=== PATIENT | female | born 1965 | race Two or more races ===

== ENCOUNTER 2023-08-31 17:08 | Emergency (ER) | payer SELFPAY ==
[~2023-08-31] VITALS: Ht 147.3 cm; Wt 86.3 kg
[2023-08-31 17:46] VITALS: BP 121/93; RESP 18; O2SAT 100
[2023-08-31 17:50] VITALS: PULSE 67
[2023-08-31] MEDS: CYCLOBENZAPRINE HCL 10 MG TAB PO ONE (18:59)
[2023-08-31] MEDS: DexAMETHasone SOD PHOS 10MG/1ML VIAL INJ IM ONE (18:59)
[2023-08-31 19:16] LABS: Urine Bacteria NONE SEEN /hpf (None Seen); Urine Blood Negative /uL (Negative); Urine Clarity Clear (Clear); Urine Color Yellow (Yellow); Urine Protein, UAD Negative (Negative); Urine Specific Gravity 1.026 (1.001-1.035); Urine Urobilinogen Normal (Negative); Urine WBC <1 /hpf (0 - 5); Urine pH 6.5 (5.0-8.0)
[2023-08-31] MEDS ORDERED: ZOFR4T PO (20:02)
[2023-08-31] MEDS ORDERED: MECL1TAB42 PO (20:02)
== END 2023-08-31 21:23 | disposition left against medical advice (07) ==
LOC: ER 17:08
DX: H81.10 Benign paroxysmal vertigo, unspecified ear (principal)
CPT/HCPCS: 81001; 82962; 93005; 96372; 99284; J1100

== ENCOUNTER → 2023-12-10 | Outpatient (CLI) | payer BC ==
[~2023-12-10] MED LIST: MECL1TAB42 PO; ZOFR4T PO
[2023-12-10 06:48] LABS: Urine Bacteria None Seen /hpf (None Seen)
[2023-12-10 07:29] LABS: Urine Blood TRACE /uL (Negative); Urine Clarity Clear (Clear); Urine Color Yellow (Yellow); Urine Hyaline Cast MOD /lpf (0 - 2); Urine Mucus FEW (None Seen); Urine Protein, UAD TRACE (Negative); Urine Specific Gravity 1.025 (1.001-1.035); Urine Urobilinogen 2 mg/dL (Negative); Urine WBC 5 /hpf (0 - 5); Urine pH 5.5 (5.0-9.0)
[2023-12-10 07:46] LABS: % Iron Saturation 4.2 % (15-50)
[2023-12-10 07:48] LABS: Alanine Aminotransferase 13 U/L (7-40); Alkaline Phosphatase 124 U/L (46-116); Anion Gap 6 (5-15); BUN/Creatinine Ratio 23.5 (10.0-20.0); Blood Urea Nitrogen 16 mg/dL (9-23); Calcium 9.4 mg/dL (8.5-10.1); Carbon Dioxide 26 mmol/L (20-30); Chloride 109 mmol/L (98-107); Glucose 105 mg/dL (74-106); LDL Cholesterol 130 mg/dL (< 100); Potassium 4.3 mmol/L (3.5-5.1); Sodium 141 mmol/L (136-145); Triglycerides 128 mg/dL (< 150)
[2023-12-10 07:49] LABS: Albumin 3.7 g/dL (3.2-4.8); Aspartate Aminotransferase 14 U/L (13-40)
[2023-12-10 07:50] LABS: Basophils # (auto) 0.1 10 ^3/uL (0-0.2); Basophils % (auto) 0.8 % (0.0-2.0); Bilirubin, Total 0.2 mg/dL (0.2-1.0); Cholesterol 200 mg/dL (< 200); Eosinophils # (auto) 0.1 10 ^3/uL (0-0.8); HDL Cholesterol 55 mg/dL (40-59); Hematocrit 30.1 % (36.0-46.0); Hemoglobin 9.2 g/dL (12.2-16.2); Lymphocytes # (auto) 2.1 10 ^3/uL (0.4-5.4); Lymphocytes % (auto) 28.9 % (10.0-50.0); Mean Corpuscular Hemoglobin 20.4 pg (28.0-32.0); Mean Corpuscular Hgb Conc. 30.7 g/dL (32.0-36.0); Mean Corpuscular Volume 66.4 fL (80.0-100.0); Monocytes # (auto) 0.6 10 ^3/uL (0-1.3); Monocytes % (auto) 8.2 % (0.0-12.0); Neutrophils # (auto) 4.5 10 ^3/uL (1.6-8.6); Neutrophils % (auto) 61.1 % (37.0-80.0); Nucleated Red Blood Cells % 0.1 %; Red Blood Cells 4.53 10^6/uL (4.0-5.20); Red Cell Distribution Width 19.2 % (11.8-14.3); Total Protein 7.4 g/dL (5.7-8.2); White Blood Cell 7.4 10^3/uL (4.4-10.8)
[2023-12-10 07:51] LABS: Folate (Folic Acid) 10.62 ng/mL (>5.38); T3 Total 1.1 ng/mL (0.60-1.81)
[2023-12-10 07:52] LABS: Ferritin 2.2 ng/mL (10-291)
[2023-12-10 07:53] LABS: Free T4 (Free Thyroxine) 0.75 ng/dL (0.89-1.76)
== END | disposition home or self-care (01) ==
LOC: LAB 06:33
PROVIDERS: ATTEND Student in an Organized Health Care Education/Training Program
DX: E03.8 Other specified hypothyroidism (principal); R73.9 Hyperglycemia, unspecified; E55.9 Vitamin D deficiency, unspecified; R03.0 Elevated blood-pressure reading, without diagnosis of hypertension; D50.8 Other iron deficiency anemias; Z98.84 Bariatric surgery status
CPT/HCPCS: 36415; 80053; 80061; 81001; 82306; 82607; 82728; 82746; 83036; 83540; 83550; 84439; 84443; 84480; 85025

== ENCOUNTER → 2024-05-06 | Outpatient (CLI) | payer BC ==
[2024-05-06 07:21] LABS: Eosinophils # (auto) 0.1 10 ^3/uL (0-0.8); Eosinophils % (auto) 1.2 % (0.0-7.0); Hemoglobin 9.4 g/dL (12.2-16.2); Lymphocytes # (auto) 2.3 10 ^3/uL (0.4-5.4); White Blood Cell 6.4 10^3/uL (4.4-10.8)
[2024-05-06 07:23] LABS: Basophils # (auto) 0.1 10 ^3/uL (0-0.2); Basophils % (auto) 0.8 % (0.0-2.0); Lymphocytes % (auto) 35.5 % (10.0-50.0); Mean Corpuscular Hgb Conc. 31.3 g/dL (32.0-36.0); Monocytes # (auto) 0.5 10 ^3/uL (0-1.3); Monocytes % (auto) 8.4 % (0.0-12.0); Neutrophils # (auto) 3.5 10 ^3/uL (1.6-8.6); Neutrophils % (auto) 54.1 % (37.0-80.0); Platelet Count (auto) 362 10^3/uL (140-450); Red Blood Cells 4.47 10^6/uL (4.0-5.20); Red Cell Distribution Width 19.4 % (11.8-14.3)
[2024-05-06 07:38] LABS: Urine Bacteria FEW /hpf (None Seen); Urine Blood TRACE /uL (Negative); Urine Clarity Clear (Clear); Urine Color Yellow (Yellow); Urine Hyaline Cast FEW /lpf (0 - 2); Urine Mucus FEW (None Seen); Urine Protein, UAD TRACE (Negative); Urine Specific Gravity 1.027 (1.001-1.035); Urine Urobilinogen Normal (Negative); Urine WBC 1 /hpf (0 - 5); Urine pH 5.5 (5.0-9.0)
[2024-05-06 07:55] LABS: Anion Gap 6 (5-15); Carbon Dioxide 26 mmol/L (20-31); Chloride 108 mmol/L (98-107); Potassium 3.8 mmol/L (3.5-5.1); Sodium 140 mmol/L (136-145)
[2024-05-06 07:57] LABS: Calcium 9.3 mg/dL (8.7-10.4)
[2024-05-06 08:01] LABS: BUN/Creatinine Ratio 21.2 (10.0-20.0); Blood Urea Nitrogen 14 mg/dL (9-23); Glucose 101 mg/dL (74-106)
[2024-05-06 08:48] LABS: Platelet Estimate Adequate
[2024-05-06 08:49] LABS: Hypochromia Marked
[2024-05-07 08:06] LABS: Complement C3 132 mg/dL (82-167); Rheumatoid Arthritis Factor <10.0 IU/mL (<14.0)
[2024-05-07 09:07] LABS: Thyroid Peroxidase (TPO) Ab 518 IU/mL (0-34)
[2024-05-07 14:06] LABS: Anti-Nuclear Antibody Direct Positive (Negative); Anti-dsDNA Antibody 9 IU/mL (0-9); Antiscleroderma-70 Antibody <0.2 AI (0.0-0.9); RNP Antibody 4.2 AI (0.0-0.9); Sjogren's Anti-SS-A Antibody <0.2 AI (0.0-0.9); Sjogren's Anti-SS-B Antibody <0.2 AI (0.0-0.9); Smith Antibody <0.2 AI (0.0-0.9)
== END | disposition home or self-care (01) ==
LOC: LAB 06:57
PROVIDERS: ATTEND Student in an Organized Health Care Education/Training Program
DX: Z12.11 Encounter for screening for malignant neoplasm of colon (principal); M25.50 Pain in unspecified joint; D50.8 Other iron deficiency anemias; R73.9 Hyperglycemia, unspecified; E03.8 Other specified hypothyroidism
CPT/HCPCS: 36415; 80048; 81001; 82306; 83036; 84439; 84443; 85025; 86160; 86225; 86235; 86376; 86431

== ENCOUNTER → 2024-07-12 | Outpatient (CLI) | payer BC ==
[2024-07-12 07:21] LABS: Urine Bacteria None Seen /hpf (None Seen)
[2024-07-12 07:57] LABS: Basophils # (auto) 0.1 10 ^3/uL (0-0.2); Eosinophils # (auto) 0.1 10 ^3/uL (0-0.8); Hemoglobin 9.7 g/dL (12.2-16.2); Lymphocytes # (auto) 2.7 10 ^3/uL (0.4-5.4); Nucleated Red Blood Cells % 0.1 %
[2024-07-12 07:58] LABS: Basophils % (auto) 1.3 % (0.0-2.0); Hematocrit 32.2 % (36.0-46.0); Lymphocytes % (auto) 37.9 % (10.0-50.0); Mean Corpuscular Hemoglobin 20.7 pg (28.0-32.0); Mean Corpuscular Hgb Conc. 30.1 g/dL (32.0-36.0); Mean Corpuscular Volume 68.9 fL (80.0-100.0); Monocytes # (auto) 0.4 10 ^3/uL (0-1.3); Neutrophils # (auto) 3.8 10 ^3/uL (1.6-8.6); Neutrophils % (auto) 53.8 % (37.0-80.0); Platelet Count (auto) 405 10^3/uL (140-450); Red Blood Cells 4.67 10^6/uL (4.0-5.20); Red Cell Distribution Width 20.1 % (11.8-14.3)
[2024-07-12 08:15] LABS: Urine Blood TRACE /uL (Negative); Urine Clarity Clear (Clear); Urine Color Yellow (Yellow); Urine Hyaline Cast MOD /lpf (0 - 2); Urine Mucus FEW (None Seen); Urine Protein, UAD TRACE (Negative); Urine Specific Gravity 1.026 (1.001-1.035); Urine Urobilinogen 3 mg/dL (Negative); Urine WBC 1 /hpf (0 - 5); Urine pH 5.5 (5.0-9.0)
[2024-07-12 08:26] LABS: Erythrocyte Sedimentation Rate 34 mm/hr (0-20)
[2024-07-12 09:11] LABS: Protein, Urine 39.6 mg/dL (1-14)
[2024-07-12 09:19] LABS: Alanine Aminotransferase 14 U/L (7-40); Albumin 4.3 g/dL (3.2-4.8); Anion Gap 7 (5-15); Aspartate Aminotransferase 17 U/L (13-40); BUN/Creatinine Ratio 21.6 (10.0-20.0); Blood Urea Nitrogen 16 mg/dL (9-23); CRP High Sensitivity 0.05 mg/dL (<1.0); Calcium 9.6 mg/dL (8.7-10.4); Carbon Dioxide 25 mmol/L (20-31); Potassium 3.6 mmol/L (3.5-5.1); Sodium 140 mmol/L (136-145)
[2024-07-12 09:20] LABS: Total Protein 7.5 g/dL (5.7-8.2)
[2024-07-12 09:23] LABS: Urine Protein/Creatinine Ratio 0.12
[2024-07-12 09:32] LABS: Creatinine, Urine 325.41 mg/dL (30.0-125.0)
[2024-07-12 09:34] LABS: Alkaline Phosphatase 131 U/L (46-116); Bilirubin, Total 0.2 mg/dL (0.2-1.0); Chloride 108 mmol/L (98-107); Glucose 156 mg/dL (74-106)
[2024-07-12 10:44] LABS: Uric Acid 5.1 mg/dL (3.1-7.8)
[2024-07-12 11:55] LABS: Anisocytosis Slight; Hypochromia Moderate
[2024-07-12 11:56] LABS: Large Platelets FEW; Platelet Estimate Decrea; Stomatocytes Few
[2024-07-13 10:06] LABS: Complement C3 148 mg/dL (82-167); Rheumatoid Arthritis Factor <10.0 IU/mL (<14.0)
== END | disposition home or self-care (01) ==
LOC: LAB 06:54
PROVIDERS: ATTEND Internal Medicine Rheumatology
DX: R53.83 Other fatigue (principal); E76.9 Glucosaminoglycan metabolism disorder, unspecified; M25.50 Pain in unspecified joint
CPT/HCPCS: 36415; 80053; 81001; 82306; 82570; 84156; 84550; 85025; 85652; 86141; 86160; 86200; 86256; 86431; 86812

== ENCOUNTER 2024-09-18 20:36 | Emergency (ER) | payer BC | END 2024-09-18 21:07 | disposition left against medical advice (07) | LOC: ER 20:36 | DX: I10 Essential (primary) hypertension (principal); Z53.21 Procedure and treatment not carried out due to patient leaving prior to being seen by health care provider ==

== ENCOUNTER 2025-05-17 05:02 | Emergency (ER) | payer BC ==
[~2025-05-17] VITALS: Ht 147.3 cm; Wt 95.0 kg
[2025-05-17 06:15] VITALS: PULSE 82; RESP 18; O2SAT 100
[2025-05-17] MEDS: methylPREDNISolone SOD SUCC 125 MG/2 ML VL IM ONE (06:36)
[2025-05-17] MEDS: KETOROLAC TROMETH 60MG/2ML VIAL IM ONE (06:36)
--- NOTE | 2025-05-17 06:39 | ED.PDOC ---
Back pain HPI HPI Comments 60-year-old female presents to the ER in a wheelchair being pushed by spouse and with the the chief complaint of possible sciatica pain. Patient reports on working yesterday when she had right lower back pain which was mild but durable, until this morning at 2:30 a.m. when the patient had a throbbing right lower back pain radiating down the right leg. Patient was given [id number] medications with no relief at that time. The patient states that she is currently unable to walk or find a right position for the pain to subside. Patient is allergic to Bactrim and morphine. Denies any other symptoms at this time. Denies history of chronic steroid use or history of osteoporosis Denies history of cancer Denies fevers chills night sweats nausea vomiting unintentional weight loss Denies abdominal tearing pain Denies syncope Denies urinary changes or urinary incontinence Denies numbness tingling of the groin her inner thigh Denies previous back procedures or surgeries Time Seen by MD: 06:30 Reviewed Notes: Nurses Notes, Medications, Allergies Allergies: Coded Allergies: Morphine (Verified Allergy, Unknown, 08/31/23) Sulfamethoxazole w/Trimethoprim (Verified Allergy, Unknown, 08/31/23) Home Meds Active Scripts Meclizine HCl (Meclizine 25) 25 Mg Tab, 25 MG PO DAILY, #30 TAB Prov:JAMES MCCORMICK 08/31/23 Ondansetron Odt 4MG Tab (ZOFRAN PO) 4 Mg Tb, 4 MG PO Q8HPRN PRN, #20 TAB ODT TAB-DISSOLVE IN MOUTH, THEN SWALLOW Prov:JAMES MCCORMICK 08/31/23 Information Source: Patient, Spouse Mode of Arrival: Wheelchair Duration: Since onset Location of Back pain: (R) Lower back Severity: Moderate Prehospital treatment: None Quality: Aching Onset: Spontaneous History of: None Associated signs and symptoms: None Past Medical History PAST MEDICAL HISTORY: Denies Surgical History: Denies all surgeries 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 [employer] 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[employer] TEACHER History Family History Family History: Reviewed,noncontributory to illness, Unknown Social History Smoker: Non-Smoker Alcohol: Denies ETOH Use Drugs: Denies Drug Use Lives In: Home Constitutional: denies: chills, diaphoresis, fatigue, fever, malaise, sweats, weakness, others EENTM: denies: blurred vision, double vision, ear bleeding, ear discharge, ear drainage, ear pain, ear ringing, eye pain, eye redness, hearing loss, mouth pain, mouth swelling, nasal discharge, nose bleeding, nose congestion, nose pain, photophobia, tearing, throat pain, throat swelling, voice changes, others Respiratory: denies: cough, hemoptysis, orthopnea, SOB at rest, shortness of breath, SOB with excertion, stridor, wheezing, others Cardiovascular: denies: chest pain, dizzy spells, diaphoresis, Dyspnea on exertion, edema, irregular heart beat, left arm pain, lightheadedness, palpitations, PND, syncope, others Gastrointestinal: denies: abdomen distended, abdominal pain, blood streaked bowels, constipated, diarrhea, dysphagia, difficulty swallowing, hematemesis, melena, nausea, poor appetite, poor fluid intake, rectal bleeding, rectal pain, vomiting, others Genitourinary: denies: abnormal vagina bleeding, burning, dyspareunia, dysuria, flank pain, frequency, hematuria, incontinence, pain, , vagina discharge, urgency, others Neurological: denies: dizziness, fainting, headache, left sided numbness, left sided weakness, numbness, paresthesia, pre-existing deficit, right sided numbness, right sided weakness, seizure, speech problems, tingling, tremors, weakness, others Musculoskeletal: reports: back pain (Radiating down the right leg); denies: gout, joint pain, joint swelling, muscle pain, muscle stiffness, neck pain, others Integumetry: denies: bruises, change in color, change in hair/nails, dryness, laceration, lesions, lumps, rash, wounds, others Allergic/Immunocompromised: denies: Difficulty Healing, Frequent Infections, Hives, Itching, others Hematologic/Lymphatic: denies: anemia, blood clots, easy bleeding, easy bruising, swollen glands, others Endocrine: denies: excessive hunger, excessive sweating, excessive thirst, excessive urination, flushing, intolerance to cold, intolerance to heat, unexplained weight gain, unexplained weight loss, others Psychiatric: denies: anxiety, bipolar disorder, depression, hopeless, panic disorder, schizophrenia, sleepless, suicidal, others All Other Systems: Reviewed and Negative Physical Exam Exam Comments No midline TTP. No bony step-offs on palpation. Localized pain to the right paraspinal lumbosacral region. Right straight leg raise test positive neurovascular sensation is intact General Appearance: No Apparent Distress, Normal HEENT: Normal ENT Inspection, Pharynx Normal, TMs Normal Neck: Full Range of Motion, Non-Tender, Normal, Normal Inspection Respiratory: Chest Non-Tender, Lungs Clear, No Accessory Muscle Use, No Respiratory Distress, Normal Breath Sounds Cardiovascular: No Edema, No JVD, No Murmur, No Gallop, Normal Peripheral Pulses, Regular Rate/Rhythm Breast Exam: Deferred Gastrointestinal: No Organomegaly, Non Tender, No Pulsatile Mass, Normal Bowel Sounds, Soft Genitalia: Deferred Pelvic: Deferred Rectal: Deferred Extremities: No calf tenderness, Normal capillary refill, Normal inspection, Normal range of motion, Non-tender, No pedal edema Musculoskeletal : Apperance: Normal Neurologic: 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 Was a procedure done?: No Back Pain Differential Dx Differential Diagnosis: Musculoskeletal Pain X-Ray, Labs, Meds, VS Vital Signs Date Time Temp Pulse Resp B/P (MAP) Pulse Ox O2 Delivery O2 Flow Rate FiO2 05/17/25 06:42 97.8 83 20 173/77 98 97.8 05/17/25 06:17 98.0 82 18 159/79 (105) 100 98.0 05/17/25 06:15 82 18 100 Room Air* 0 21 Lab Test 05/17/25 09:07 Range/Units Urine Color Yellow Yellow Urine Clarity Turbid H Clear Urine pH 5.5 5.0-9.0 Urine Specific [place] 1.035 1.001-1.035 Urine Protein Trace H Negative Urine Ketones Trace Negative Urine Blood Negative Negative /uL Urine Nitrite 2+ H Negative Urine Bilirubin Negative Negative Urine Urobilinogen Normal Negative mg/dL Urine Leukocyte Esterase Negative Negative /uL Urine RBC 2 0 - 4 /hpf Urine Microscopic WBC 5 0-5 /HPF Urine Squamous Epithelial Cells Few <5 /hpf Urine Bacteria Mod H None Seen /hpf Urine Mucus Few None Seen Urine Glucose Normal Normal mg/dL Current Medications Medications (Trade) Dose Ordered Sig/Vandana Route Start Time Stop Time Status Last Admin Methylprednisolone Sodium Succinate (Solu Medrol) 125 mg ONCE ONCE IM 05/17/25 06:30 05/17/25 06:31 DC 05/17/25 06:36 Ketorolac Tromethamine (Toradol Injection) 60 mg ONCE ONCE IM 05/17/25 06:30 05/17/25 06:31 DC 05/17/25 06:36 Acetaminophen/ Hydrocodone Bitart ([place] 7.5/325MG Tab) 1 tab ONCE ONCE PO 05/17/25 06:30 05/17/25 06:31 DC 05/17/25 06:42 X-Ray, Labs, Meds, VS Comment 60-year-old female presents to the ER in a wheelchair being pushed by spouse and with the the chief complaint of possible sciatica pain. Patient arrives alert and oriented, ABC's intact, afebrile, vital signs stable, saturating well in room air Peripheral IV insertion+ labs were ordered. Urinalysis was ordered to rule out UTI or hematuria.The episode appears to be exacerbated by an unknown cause at this time. However, the patient's motor strengths are currently intact. There are no signs of cauda equina or cord compression at this time. I suspect most likely a radicular nature of their symptoms that should resolve with some bed rest, NSAIDs, pain control medications, and stretching as tolerated. The differential for a acute vascular, neurologic, malignant, or infectious etiology is much less likely given their presentation. The patient does not warrant a radiological exam at this time. The patient was given Medication for pain control in the ED. On reassessment, the patient's symptoms improved and the patient was able to ambulate without assistive devices. The patient will follow up with the primary care doctor to see if there symptoms andrea. An MRI may need to be ordered if there symptoms worsen or do not improve over time. The patient was counseled r telly to the diagnosis and management of the condition and verbalized understanding to this. The patient understands to return to the ER or seek immediate medical attention if symptoms worsen. Checked the [employer]ES website, no history of narcotic use within the past year. Will prescribe [place] p.o. for pain management. Education provided on possible side effects of medication including drowsiness, nausea, respiratory distress, etc. Do not drive, operate heavy machinery or make legal decisions while taking medi cation. Follow-up with your PMD within 24 to 48 hours. Patient is stable for discharge at this time. External notes reviewed. Test results and diagnostic imaging interpreted. All diagnostic findings, discharge care, education and instructions provided Follow-up with PCP in 2 to 3 days Patient verbalized understanding and agreed to treatment plan Vital signs stable, afebrile, no acute distress noted Patient ambulatory with strong steady gait Advised to return precautions for any new or worsening symptoms, return to ER immediately for re-evaluation Patient is aware that the purpose of this visit was for an acute medical emergency requiring emergent stabilization. Chronic conditions, including malignancies have not been ruled out. Patient is instructed to follow up with PCP as directed and discharge instructions for continued care and workup. If unable to arrange follow-up, patient is to return to the emergency department for reassessment. Patient (parent or legal guardian if applicable) was given verbal and written discharge instructions and acknowledges understanding. Additional MDM Review of External, Non-ED records: External records reviewed. Discussion with independent historian (EMS, family) history obtained from the patient/parents (if applicable) at bedside Chronic conditions affecting care: None Social determinants of health affecting care: None Consideration of admission (observation or admission): I considered escalation of care to admission for this patient, however given the reassuring workup, the patient is safe for outpatient management. Discussion with the Radiology: No Tests considered but not performed: Prescription medication considered but not given: 12 lead EKG interpretation: Time of 1ST Reevaluation: 07:00 Reevaluation 1ST: Unchanged Patient Education/Counseling: Diagnosis, Treatment, Prognosis Family Education/Counseling: No Family Present SEPSIS Sepsis Screen Date sepsis recognized/suspect: May 17, 2025 Time Sepsis recognized/suspect: 615 Recent Procedure: No On Antibiotic Therapy: No Respiratory Rate >20: No Heart Rate >90: No Temp<36 C (96.8 F) or >38.3 C: No SBP <90 or MAP <65 mmHG: No New Acute Mental Status Change: No Is the patient on CPAP, BIPAP,: No Vital Signs Date Time Temp Pulse Resp B/P (MAP) Pulse Ox O2 Delivery O2 Flow Rate FiO2 05/17/25 06:42 97.8 83 20 173/77 98 97.8 05/17/25 06:17 98.0 82 18 159/79 (105) 100 98.0 05/17/25 06:15 82 18 100 Room Air* 0 21 Medications Medications Dose Ordered Sig/Vandana Route Start Time Stop Time Status Last Admin Dose Admin Acetaminophen/ Hydrocodone Bitart 1 tab ONCE ONCE PO 05/17/25 06:30 05/17/25 06:31 DC 05/17/25 06:42 Ketorolac Tromethamine 60 mg ONCE ONCE IM 05/17/25 06:30 05/17/25 06:31 DC 05/17/25 06:36 Methylprednisolone Sodium Succinate 125 mg ONCE ONCE IM 05/17/25 06:30 05/17/25 06:31 DC 05/17/25 06:36 Departure 1 Departure Time of Disposition: 09:38 Impression: Primary Impression: Lumbar radiculopathy Disposition: HOME / SELF CARE / HOMELESS Condition: Fair e-Prescriptions Acetaminophen W/ Codeine (Tylenol W/Cod #3) 1 Tab Tb 1 TAB PO Q8HP PRN for 2 Days, #6 TAB 0 Refills Prov: LILI ALEGRE NP 05/17/25 Methylprednisolone (Medrol Dosepak) 4 Mg [place] 4 MG PO UD, #21 TAB 0 Refills UAD Prov: LILI ALEGRE MACHINING ASSOCIATE 05/17/25 Discharged With: Spouse Critical Care Note Critical Care Time?: No Stability Stability form required: No Heart Score Heart Score: Heart Score Response (Comments) Value History N/A 0 EKG N/A 0 Age N/A 0 Risk Factors N/A 0 Troponin N/A (Fovea) 0 Total 0 I personally scribed for LILI ALEGRE MACHINING ASSOCIATE ([email or web address]) on 05/17/25 at 06:39. Electronically submitted by Handy Granados ([email or web address]). LILI ALEGRE MACHINING ASSOCIATE May 17, 2025 06:39
[2025-05-17] MEDS: HYDROcodone-ACET 7.5/325MG TAB PO ONE (06:42)
[2025-05-17 09:23] LABS: Urine Protein, UAD TRACE (Negative)
[2025-05-17] MEDS ORDERED: METH4PAK PO (09:39)
[2025-05-17] MEDS ORDERED: ACE3T PO (09:39)
[2025-05-17 09:49] VITALS: BP 142/92; PULSE 89; RESP 18; TEMP 98.6; O2SAT 98
== END 2025-05-17 09:50 | disposition home or self-care (01) ==
LOC: EEVIPCON 05:02 → ER 05:02
DX: M54.16 Radiculopathy, lumbar region (principal); Z88.2 Allergy status to sulfonamides; Z88.5 Allergy status to narcotic agent; Z88.1 Allergy status to other antibiotic agents
CPT/HCPCS: 81001; 96372; 99284; J1885; J2919

== ENCOUNTER 2025-06-03 06:11 | Outpatient (CLI) | payer BC ==
[~2025-06-03 06:11] MED LIST changes: +ACE3T PO; +METH4PAK PO
[2025-06-03 06:56] LABS: Hematocrit 32.1 % (36.0-46.0); Hemoglobin 10.0 g/dL (12.2-16.2); Mean Corpuscular Hemoglobin 22.5 pg (28.0-32.0); Mean Corpuscular Volume 71.9 fL (80.0-100.0); Nucleated Red Blood Cells % 0.2 %
[2025-06-03 06:58] LABS: Urine Protein, UAD Negative (Negative)
[2025-06-03 07:18] LABS: Alanine Aminotransferase 19 U/L (7-40); Albumin 4.2 g/dL (3.2-4.8); Anion Gap 11 (5-15); BUN/Creatinine Ratio 20.0 (10.0-20.0); Blood Urea Nitrogen 14 mg/dL (9-23); Calcium 9.0 mg/dL (8.7-10.4); Carbon Dioxide 25 mmol/L (20-31); Potassium 4.4 mmol/L (3.5-5.1); Total Protein 7.2 g/dL (5.7-8.2); Triglycerides 83 mg/dL (< 150)
[2025-06-03 07:19] LABS: Alkaline Phosphatase 139 U/L (46-116); Bilirubin, Total 0.3 mg/dL (0.2-1.0); Chloride 109 mmol/L (98-107); Cholesterol 217 mg/dL (< 200); Glucose 108 mg/dL (74-106); HDL Cholesterol 65 mg/dL (40-59); Sodium 145 mmol/L (136-145)
[2025-06-03 07:21] LABS: Iron 46.0 ug/dL (50-170); Total Iron Binding Capacity 447.0 ug/dL (250-425)
[2025-06-03 07:23] LABS: Ferritin 5.4 ng/mL (10-291)
[2025-06-03 07:25] LABS: Free T4 (Free Thyroxine) 1.07 ng/dL (0.89-1.76)
== END 2025-06-03 17:00 | disposition home or self-care (01) ==
LOC: LAB 06:11
PROVIDERS: ATTEND Internal Medicine
DX: I10 Essential (primary) hypertension (principal); E06.3 Autoimmune thyroiditis; D50.8 Other iron deficiency anemias; Z00.01 Encounter for general adult medical examination with abnormal findings; Z13.1 Encounter for screening for diabetes mellitus
CPT/HCPCS: 36415; 80053; 80061; 81001; 82728; 83036; 83540; 83550; 84439; 84443; 85025